=== PATIENT | male | born 1960 | race Caucasian/White ===

== ENCOUNTER 2021-10-10 12:58 | Emergency (ER) | payer OTHER, SELFPAY ==
[2021-10-10] VITALS (9 sets, daily range): BP systolic 118–169; BP diastolic 61–88; PULSE 69–88; RESP 15–23; TEMP 36.9; O2SAT 94–96; BMI 17.6
[2021-10-10 13:38] LABS: Prothrombin Time 10.6 SECONDS (10.1-12.7)
[2021-10-10 13:40] LABS: PTT Partial Thromboplastin Tim 28 SECONDS (26.4-36.2)
[2021-10-10 13:42] LABS: Alanine Aminotransferase 38 IU/L (<50); Albumin 4.4 g/dL (3.5-5.0); Albumin Globulin Ratio 1.5 (1.0-2.8); Alkaline Phosphatase 66 U/L (38-126); Aspartate Aminotransferase 38 IU/L (17-59); BUN Creatinine Ratio 14.4 (6-22); Bilirubin Total 0.6 mg/dL (0.2-1.3); Blood Urea Nitrogen 16 mg/dL (9-20); Calcium 8.9 mg/dL (8.4-10.2); Carbon Dioxide 27 mmol/L (22-32); Chloride 105 mmol/L (98-107); Estimated Glomerular Filt Rate > 60 mL/min (>60); Globulin 2.9 g/dL (1.7-4.1); Glucose 197 mg/dL (80-110); HEMOLYSIS 18 (0-50); Sodium 139 mmol/L (137-145); Total Protein 7.3 g/dL (6.3-8.2)
[2021-10-10 13:58] LABS: Add Manual Diff / Slide Review NO; Basophils Absolute Auto 0 /uL (0-100); Basophils Percent Auto 0.5 % (0-2); Eosinophils Absolute Auto 0 /uL (0-450); Eosinophils Percent Auto 0.7 % (2-4); Hemoglobin 15.3 g/dL (13.5-17.5); Lymphocytes Absolute Auto 1400 /uL (1100-4500); Lymphocytes Percent Auto 25.7 % (25-40); Mean Corpuscular HGB Conc 34.8 % (30-36); Mean Corpuscular Hemoglobin 31.4 PG (26-34); Mean Corpuscular Volume 90.1 fL (80-100); Monocytes Absolute Auto 500 /uL (0-900); Monocytes Percent Auto 9.9 % (3-14); Neutrophils Absolute Auto 3500 /uL (1500-7000); Neutrophils Percent Auto 63.2 % (50-75); Platelet Count 272 X10^3/uL (150-400); Red Blood Cell Count 4.88 X10^6/uL (4.5-5.9); Red Cell Distribution Width 13.2 % (11.6-14.8); White Blood Cell Count 5.5 X10^3/uL (4.5-11.0)
--- NOTE | 2021-10-10 17:02 | ED.GIBLEED ---
HPI - GI Bleed General Chief complaint: GI Bleed Stated complaint: internal bleeding Time Seen by Provider: 10/10/21 17:02 Source: patient Mode of arrival: Ambulatory History of Present Illness HPI Narrative: Patient is a chemo 7-year-old male history of hyperlipidemia presenting today with rectal bleeding. 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 However today he noted a bit more blood in his stool. No nausea vomiting he is having some abdominal cramping no dizziness or lightheadedness. He has not had any further episodes in the emergency department. He denies any shortness of breath with exertion Related Data Allergies Allergy/AdvReac Type Severity Reaction Status Date / Time No Known Drug Allergies Allergy Verified 10/10/21 13:03 Review of Systems Review of Systems Narrative: GENERAL: Denies chills, fatigue, malaise, fever, sweats, travel HEENT: Denies sinus pain, ear pain, sore throat, difficulty swallowing, neck pain RESPIRATORY: Denies dyspnea, cough, wheezing, hemoptysis, sputum. CARDIOVASCULAR: Denies chest pain, palpitations, orthopnea, edema GASTROINTESTINAL: See HPI : Denies dysuria, frequency, incontinence, hematuria, urinary retention, flank pain. MUSCULOSKELETAL: Denies weakness, joint pain, or bony pain SKIN: No rash, no erythema, no pruritus NEUROLOGIC: Denies weakness, dizziness, headache, numbness, change in speech, confusion PSYCHIATRIC: No concerning psychosocial issues. 12 point review of systems is negative except for those stated above and HPI Patient History Social History Smoking Status: Unknown if ever smoked Smoking Status: Unknown if ever smoked alcohol intake frequency: holidays/special occasions only Substance Use Type: does not use Exam Initial Vital Signs Initial Vital Signs: Vital Signs Temperature 98.4 F 10/10/21 13:03 Pulse Rate 88 10/10/21 13:03 Respiratory Rate 15 10/10/21 13:03 Blood Pressure 169/88 H 10/10/21 13:03 Pulse Oximetry 96 10/10/21 13:03 Oxygen Delivery Method 10/10/21 13:03 GENERAL: Alert pleasant 61-year-old male HEENT: Head atraumatic,EOMI, pupils reactive, face symmetric, moist mucous membranes CARDIOVASCULAR: Regular rate and rhythm without murmurs, rubs or gallops. RESPIRATORY: Breath sounds equal bilaterally, no wheezes rales or rhonchi. ABDOMEN: Soft, nontender. Normoactive bowel sounds all 4 quadrants. No guarding or rebound. RECTAL: No gross blood no hemorrhoids EXTREMITIES: Normal range of motion, no clubbing or edema. Neurovascularly intact NEUROLOGICAL: Alert and oriented x4.Normal gait and speech. SKIN: Warm, dry, no laceration, no petechiae, no rashes or lesions. Course Orders Ordered: ED Orders 10/10/21 13:15 Complete Blood Count AUTO DIFF Stat Comprehensive Metabolic Panel Stat Partial Thromboplastin Time Stat Prothrombin Time INR Stat Type and Screen Stat 10/10/21 13:18 Lactate (Lactic Acid) Stat 10/10/21 13:19 EKG-12 Lead Stat Vital Signs Vital signs: Vital Signs - 8 hr 10/10/21 13:03 10/10/21 15:59 10/10/21 16:00 Temperature 98.4 F Pulse Rate 88 80 Pulse Rate [Orthostatic Lying] Pulse Rate [Orthostatic Sitting] Pulse Rate [Orthostatic Standing] Respiratory Rate 15 Blood Pressure 169/88 H 123/74 Blood Pressure [Orthostatic Lying] Blood Pressure [Orthostatic Sitting] Blood Pressure [Orthostatic Standing] Pulse Oximetry 96 96 Oxygen Delivery Method Room Air 10/10/21 16:00 10/10/21 16:02 10/10/21 16:02 Temperature Pulse Rate 73 78 Pulse Rate [Orthostatic Lying] Pulse Rate [Orthostatic Sitting] Pulse Rate [Orthostatic Standing] Respiratory Rate 23 Blood Pressure 145/67 H Blood Pressure [Orthostatic Lying] Blood Pressure [Orthostatic Sitting] Blood Pressure [Orthostatic Standing] Pulse Oximetry 95 96 Oxygen Delivery Method 10/10/21 16:42 10/10/21 16:29 10/10/21 16:29 Temperature Pulse Rate 69 Pulse Rate [Orthostatic Lying] 69 Pulse Rate [Orthostatic Sitting] 79 Pulse Rate [Orthostatic Standing] 78 Respiratory Rate 18 Blood Pressure 123/61 Blood Pressure [Orthostatic Lying] 123/61 Blood Pressure [Orthostatic Sitting] 128/77 Blood Pressure [Orthostatic Standing] 118/79 Pulse Oximetry 95 Oxygen Delivery Method 10/10/21 16:30 10/10/21 16:32 10/10/21 16:32 Temperature Pulse Rate 71 77 Pulse Rate [Orthostatic Lying] Pulse Rate [Orthostatic Sitting] Pulse Rate [Orthostatic Standing] Respiratory Rate 20 15 Blood Pressure 128/77 Blood Pressure [Orthostatic Lying] Blood Pressure [Orthostatic Sitting] Blood Pressure [Orthostatic Standing] Pulse Oximetry 96 96 Oxygen Delivery Method 10/10/21 16:34 10/10/21 16:34 Temperature Pulse Rate 80 Pulse Rate [Orthostatic Lying] Pulse Rate [Orthostatic Sitting] Pulse Rate [Orthostatic Standing] Respiratory Rate Blood Pressure 118/79 Blood Pressure [Orthostatic Lying] Blood Pressure [Orthostatic Sitting] Blood Pressure [Orthostatic Standing] Pulse Oximetry 94 Oxygen Delivery Method MDM - GI Bleed Lab Data Result diagrams: 10/10/21 13:15 10/10/21 13:15 Labs: Lab Results 10/10/21 10/10/21 10/10/21 Range/Units 13:15 13:15 13:15 WBC 5.5 (4.5-11.0) X10^3/uL RBC 4.88 (4.5-5.9) X10^6/uL Hgb 15.3 (13.5-17.5) g/dL Hct 44.0 (41-53) % MCV 90.1 (80-100) fL MCH 31.4 (26-34) PG MCHC 34.8 (30-36) % RDW 13.2 (11.6-14.8) % Plt Count 272 (150-400) X10^3/uL Neut % (Auto) 63.2 (50-75) % Lymph % (Auto) 25.7 (25-40) % Phillips % (Auto) 9.9 (3-14) % Eos % (Auto) 0.7 L (2-4) % Baso % (Auto) 0.5 (0-2) % Neut # (Auto) 3500 (9393-8964) /uL Lymph # (Auto) 1400 (5385-9465) /uL Phillips # (Auto) 500 (0-900) /uL Eos # (Auto) 0 (0-450) /uL Baso # (Auto) 0 (0-100) /uL PT 10.6 (10.1-12.7) SECONDS INR 1.0 (0.9-1.3) APTT 28 (26.4-36.2) SECONDS Sodium 139 (137-145) mmol/L Potassium 4.0 (3.4-5.1) mmol/L Chloride 105 (98-107) mmol/L Carbon Dioxide 27 (22-32) mmol/L BUN 16 (9-20) mg/dL Creatinine 1.11 (0.66-1.25) mg/dL Estimated GFR > 60 (>60) mL/min BUN/Creatinine Ratio 14.4 (6-22) Glucose 197 H (80-110) mg/dL Lactate (0.7-2.1) mmol/L Calcium 8.9 (8.4-10.2) mg/dL Total Bilirubin 0.6 (0.2-1.3) mg/dL AST 38 (17-59) IU/L ALT 38 (<50) IU/L Alkaline Phosphatase 66 (38-126) U/L Total Protein 7.3 (6.3-8.2) g/dL Albumin 4.4 (3.5-5.0) g/dL Globulin 2.9 (1.7-4.1) g/dL Albumin/Globulin Ratio 1.5 (1.0-2.8) Blood Type Antibody Screen 10/10/21 10/10/21 Range/Units 13:15 13:18 WBC (4.5-11.0) X10^3/uL RBC (4.5-5.9) X10^6/uL Hgb (13.5-17.5) g/dL Hct (41-53) % MCV (80-100) fL MCH (26-34) PG MCHC (30-36) % RDW (11.6-14.8) % Plt Count (150-400) X10^3/uL Neut % (Auto) (50-75) % Lymph % (Auto) (25-40) % Phillips % (Auto) (3-14) % Eos % (Auto) (2-4) % Baso % (Auto) (0-2) % Neut # (Auto) (2712-7498) /uL Lymph # (Auto) (2633-3617) /uL Phillips # (Auto) (0-900) /uL Eos # (Auto) (0-450) /uL Baso # (Auto) (0-100) /uL PT (10.1-12.7) SECONDS INR (0.9-1.3) APTT (26.4-36.2) SECONDS Sodium (137-145) mmol/L Potassium (3.4-5.1) mmol/L Chloride (98-107) mmol/L Carbon Dioxide (22-32) mmol/L BUN (9-20) mg/dL Creatinine (0.66-1.25) mg/dL Estimated GFR (>60) mL/min BUN/Creatinine Ratio (6-22) Glucose (80-110) mg/dL Lactate 2.0 (0.7-2.1) mmol/L Calcium (8.4-10.2) mg/dL Total Bilirubin (0.2-1.3) mg/dL AST (17-59) IU/L ALT (<50) IU/L Alkaline Phosphatase (38-126) U/L Total Protein (6.3-8.2) g/dL Albumin (3.5-5.0) g/dL Globulin (1.7-4.1) g/dL Albumin/Globulin Ratio (1.0-2.8) Blood Type A Negative Antibody Screen Negative Urine Dip Bedside Urine Glucose Negative Bedside Urine Bilirubin - Negative Bedside Urine Ketone - Negative Urine Specific Dumont 1.015 Bedside Urine Occult Blood - Negative Bedside Urine pH 7.0 Bedside Urine Protein - Negative Bedside Urine Urobilinogen - Negative Bedside Urine Nitrite - Negative Bedside Urine Leukocytes - Negative Esterase ECG Data Interpretation: Normal sinus rhythm rate 83 DE interval 146 year S [address] changes or T-wave inversions MDM Narrative Medical decision making narrative: Patient has should be his pictures of blood in his stools. He has does have some blood in his stool does not seem to be like blood clot. His Hemoccult is negative his blood work is overall reassuring. At this time recommend close monitoring as an outpatient return as needed needs an outpatient colonoscopy rate. He had a colonoscopy about 6 years ago he said it was normal he denies any polyps or tumors. He said he they did find some diverticulitis Discharge Plan Departure Patient Disposition: Home Clinical Impression: Rectal bleed Instructions: Gastrointestinal Bleeding Activity Restrictions/Additional Instructions: *You have been diagnosed with rectal bleeding *What to do: At this time please monitor. I suspect that your bleeding will continue with should really start to taper off. You do need an outpatient colonoscopy once this has settled. *Continue to take medications as directed *Follow up with your primary care provider in 2-3 days or call [phone] *Return to ER if you should have gross blood, blood clots, dizziness lightheadedness increasing pain nausea vomiting or any new, worsening or concerning symptoms Visit Report Forms: Patient Portal/API
== END 2021-10-10 17:26 | disposition home or self-care (01) ==
PROVIDERS: Emergency Provider Emergency Medicine
DX: K62.5 Hemorrhage of anus and rectum (principal)
CPT/HCPCS: 36415; 80053; 81003; 83605; 85025; 85610; 85730; 86850; 86900; 86901; 93005; 99283